=== PATIENT | female | born 1995 | race Caucasian/White ===

== ENCOUNTER 2023-10-19 08:25 | Emergency (ER) | payer OTHER ==
[~2023-10-19] VITALS: Ht 175.3 cm; Wt 63.6 kg
[~2023-10-19 08:25] MED LIST: CELEXA 20MG20 MG/TAB PO; ORTHO TRI-CYCLE1 TAB PO
[2023-10-19 08:30] VITALS: TEMP 98.5
[2023-10-19] MEDS ORDERED: NS 1,000 ML IV ONE (08:45)
[2023-10-19] MEDS ORDERED: Adenosine 6 MG/2 ML VIAL IV ONE (08:45)
[2023-10-19 08:52] LABS: BASO % 0.4 % (0.0-2.0); EOS # 0.1 K/mm3 (0.0-0.7); EOS % 0.9 % (0.0-4.0); GRAN # 5.1 K/mm3 (1.4-6.5); GRAN % 63.3 % (42.2-75.2); HEMATOCRIT 36.7 % (37.0-47.0); LYMPH # 2.3 K/mm3 (1.2-3.4); LYMPH % 28.4 % (20.0-51.0); MEAN CELL VOLUME 84 fl (80.0-100.0); MEAN CORPUSCULAR HEMOGLOBIN 28 pg (27-31); MEAN CORPUSCULAR HGB CONC 33 g/dl (33.0-37.0); MEAN PLATELET VOLUME 11.1 fl (7.4-10.4); MONO # 0.5 K/mm3 (0.1-0.6); MONO % 6.5 % (1.7-9.3); PLATELET COUNT 198 K/mm3 (130-400); RED BLOOD COUNT 4.35 M/mm3 (4.10-5.30); REDCELL DISTRIBUTION WIDTH-CV 13.3 % (11.5-14.5)
[2023-10-19 09:08] LABS: ALBUMIN 4.3 g/dL (3.5-5.0); BILIRUBIN,TOTAL 0.4 mg/dL (0.2-1.2); CALCIUM 9.4 mg/dL (8.4-10.2); CREATININE, serum 0.63 mg/dL (0.57-1.11); POTASSIUM 3.3 mEq/L (3.5-4.5); TOTAL PROTEIN 7.1 g/dl (6.2-8.1)
[2023-10-19 09:43] VITALS: BP 139/79; PULSE 109
== END 2023-10-19 09:44 | disposition home or self-care (01) ==
LOC: COL.ER 08:25 → EDBD 08:26 → COL.ER 09:44
PROVIDERS: Family Medicine
DX: O99.412 Diseases of the circulatory system complicating pregnancy, second trimester (principal); I47.10 Supraventricular tachycardia, unspecified; Z3A.15 15 weeks gestation of pregnancy
CPT/HCPCS: J0153; J7030